=== PATIENT | female | born 1965 | race Caucasian/White ===

== ENCOUNTER 2017-02-28 17:27 | Emergency (ER) | payer OTHER ==
[2017-02-28] MEDS ORDERED: DIPHENHYDRAMINE 50 MG/ML VIAL ONE (17:50)
[2017-02-28] MEDS ORDERED: FAMOTIDINE IN SALINE, ISO-OSM 50 ML IV ONE (17:50)
[2017-02-28] MEDS ORDERED: METHYLPREDNISOLONE SOD 125 MG/2 ML VIAL ONE (17:50)
--- NOTE | 2017-02-28 18:49 | ER PHYSICIAN DOCUMENTATION ---
Physician Documentation [facility] Name:Lauryn Kamara Age:51 yrs Sex:Female :1965 Arrival Date:02/28/2017 Time:17:27 Bed4 Private MD: Olman Landis Disposition: 02/28/17 18:16 Discharged to Home/Self Care. Impression: Acute Allergic Reaction, Rash. - Condition is Good. - Discharge Instructions: ALLERGIC REACTION, Other (General). - Prescriptions for Medrol (Win) 4 mg Oral - take 1 packet by ORAL route as directed - follow package instructions; 1 packet. - Medical Reconciliation form form. - Follow up: Private Physician; When: 2 - 3 days; Reason: Continuance of care. Follow up: Austin Toney MD; When: As needed; Reason: Continuance of care. - Problem is new. - Symptoms have improved. HPI: 02/28 18:07 This 51 yrs old Female presents to ER with complaints of jm Nausea/Vomiting/Diarrhea, Itching - HANDS AND FEET. 18:07 The patient presents with itching, redness of skin, nausea and diarrhea . Onset: The jm symptom(s)/episode began/occurred this morning, today. Associated signs and symptoms: Pertinent negatives: abdominal pain, dysphagia, Light headed shortness of breath, swelling, Syncope. Possible causes: The patient has no known obvious cause for the symptoms. At home the patient or guardian has treated the symptoms with Benadryl. Pt denies new soaps, detergents, animals, meds, or anything she can think of that would cause this diffuse itching and rash. . Historical: - Allergies: No known drug Allergies; pollen, trees, and grasses as a child; - Home Meds: 1. Flonase 50 mcg/actuation nasal spsn 2. levothyroxine oral - PMHx: HYPOTHYROIDISM; HYPOTHYROIDISM; - PSHx: left shoulder surgery; Hysterectomy; - Tetanus: unknown. - Ebola Screening: : Patient negative for fever greater than or equal to 101.5 degrees Fahrenheit, and additional compatible Ebola Virus Disease symptoms. Patient denies exposure to infectious person. Patient denies travel to an Ebola-affected area in the 21 days before illness onset. No symptoms or risks identified at this time. . - Immunization history: Unable to Obtain. - Social history: Smoking status: Patient states was never smoker of tobacco. Patient/guardian denies using alcohol. ROS: 18:10 Constitutional: Negative for fever. jm 18:10 ENT: Negative for difficulty swallowing, difficulty handling secretions. 18:10 Cardiovascular: Negative for chest pain, palpitations. 18:10 Respiratory: Negative for cough, shortness of breath. 18:10 Abdomen/GI: Positive for nausea, diarrhea, Negative for vomiting. 18:10 Skin: Positive for rash. Exam: 18:11 Constitutional: The patient appears alert, awake, anxious. jm 18:11 ENT: Posterior pharynx: Airway: normal, Uvula: normal, swelling, is not appreciated, erythema, is not appreciated, Voice: is normal. 18:11 Neck: External neck: is normal, Thyroid: appears normal, Trachea: is midline with no obvious abnormalities. 18:11 Cardiovascular: Rate: normal, Rhythm: regular. 18:11 Respiratory: Respirations: normal, Breath sounds: are normal, wheezing, is not appreciated, stridor, is not appreciated. 18:11 Skin: Appearance: Temperature: normal temperature, urticaria, and is diffusely located. Vital Signs: 17:37 Pulse 102 MON; Resp 31; Pulse Ox 95% ; rs 17:42 Pulse 87 MON; Resp 16; Pulse Ox 95% ; rs 17:42 BP 127 / 71 (auto/); rs 17:47 Pulse 80 MON; Resp 19; Pulse Ox 96% ; rs 17:52 Pulse 95 MON; Resp 17; Pulse Ox 95% ; rs 17:54 BP 137 / 80 (auto/); rs 17:57 Pulse 82 MON; Resp 17; Pulse Ox 98% ; rs 18:00 BP 125 / 79 (auto/); rs 18:17 Pulse 79 MON; Resp 17; Pulse Ox 97% ; rs 18:20 BP 132 / 79 (auto/); rs 18:30 BP 126 / 80 (auto/); rs 18:32 Pulse 67 MON; Resp 18; Pulse Ox 97% ; rs MDM: 17:34 Patient medically screened. jm 18:12 Differential diagnosis: urticaria. Data reviewed: vital signs, nurses notes, and as a jm result, I will discharge patient. Counseling: I had a detailed discussion with the patient and/or guardian regarding: the historical points, exam findings, and any diagnostic results supporting the discharge/admit diagnosis, the need for outpatient follow up, with the patient's primary care provider, an allergy/document design specialist. Medication response: The patient's symptoms have improved. Response to treatment: the patient's symptoms have markedly improved after treatment. ED course: pt is HD stable, but rash is intense. Pt given benadryl, pepcid, and solumedrol. After an hour ob observation, pt continues to improve. I will send home w medrol dose pack. . 04 17:38 Order name: Pulse Ox Continuous; Complete Time: 18:43 samanta 02/28 17:39 Order name: Iv Saline Lock; Complete Time: 18:43 Dispensed Medications: Completed: NS 0.9% 1000 ml IV at bolus once Completed: Pepcid 20 mg IVPB once 17:40 Drug: Benadryl 50 mg; {Note: decreased dosed to 25 mg just prior to being given. .} rs Route: IVP; Rate: 12.5 mg/min; Infused Over: 2 mins; Site: right antecubital; 18:43 Follow up: Response: Marked relief of symptoms rs 17:40 Drug: NS 0.9% 1000 ml; Volume: 1000 ml; Route: IV; Rate: bolus; Infused Over: 40 mins; rs Site: left antecubital; Delivery: [place] [facility]; 18:35 Follow up: Response: No adverse reaction; Marked relief of symptoms; IV Status: rs Completed infusion; IV Intake: 1000ml 17:43 Drug: Solu-MEDROL 125 mg; Route: IVP; Rate: 62.5 mg/min; Infused Over: 2 mins; Site: rs left antecubital; 18:45 Follow up: Response: No adverse reaction; Marked relief of symptoms rs 17:45 Drug: Pepcid 20 mg; Volume: 20 ml; Route: IVPB; Rate: 10 mg/min; Infused Over: 2 mins; rs Site: left antecubital; Delivery: [place] [facility]; 17:50 Follow up: IV Status: Completed infusion; IV Intake: 20ml rs 18:45 Follow up: Response: No adverse reaction; Marked relief of symptoms rs Signatures: Kriss Posada RN RN rs Olman Lucia MD MD
--- NOTE | 2017-02-28 18:49 | ER NURSING DOCUMENTATION ---
Nurse's Notes [facility] Name:Lauryn Kamara Age:51 yrs Sex:Female :1965 Arrival Date:02/28/2017 Time:17:27 Bed4 Private MD: Diagnosis:Acute Allergic Reaction;Rash Presentation: 02/28 17:45 Acuity: BLANCA 2 st 17:54 Presenting complaint: Patient states: Allergic reaction started approx 30 min [employer]. Took rs one Benadryl when she felt it starting. Initially she denied a hx of allergies but then remembered that she has had something like this happen at [facility], she takes a Benadryl, and goes back to sleep. She also was tx with allergy shots as a child for molds, trees, grasses. She was living in [place] at the time. Denies feeling SOB, no CP, itching all over, "lips feel a little big", has had one episode of N/V. Transition of care: patient was not received from another setting of care. 17:54 Method Of Arrival: Private Vehicle rs Triage Assessment: 17:30 General: Appears uncomfortable, well developed, well nourished, well groomed, Behavior rs is agitated, cooperative, pleasant, restless, scratching herself all over. Hives were forming, and she was turning generally red. States she feels jittery. . Pain: Denies pain. EENT: No deficits noted. Neuro: No deficits noted. Level of Consciousness is awake, alert, Oriented to person, place, time, event, Gait is steady, Speech is normal, Facial symmetry appears normal. Cardiovascular: No deficits noted. Capillary refill < 3 seconds Heart tones S1 S2 present Pulses are 3+ in left radial artery Denies lightheadedness, palpitations, syncope, Chest pain. Respiratory: No deficits noted. Airway is patent Respiratory effort is even, unlabored, Respiratory pattern is regular, symmetrical, hyperventilation Breath sounds are clear bilaterally. Denies shortness of breath. GI: Abdomen is flat, non- distended Bowel sounds present X 4 quads. Abd is soft and non tender Reports N?V [employer]. Derm: Skin is red, Rash noted that is urticaria, Reports increased itching. Historical: - Allergies: No known drug Allergies; pollen, trees, and grasses as a child; - Home Meds: 1. Flonase 50 mcg/actuation nasal spsn 2. levothyroxine oral - PMHx: HYPOTHYROIDISM; HYPOTHYROIDISM; - PSHx: left shoulder surgery; Hysterectomy; - Tetanus: unknown. - Ebola Screening: : Patient negative for fever greater than or equal to 101.5 degrees Fahrenheit, and additional compatible Ebola Virus Disease symptoms. Patient denies exposure to infectious person. Patient denies travel to an Ebola-affected area in the 21 days before illness onset. No symptoms or risks identified at this time. . - Immunization history: Unable to Obtain. - Social history: Smoking status: Patient states was never smoker of tobacco. Patient/guardian denies using alcohol. Screenin:27 Infectious Disease Risk None. Abuse screen: Denies threats or abuse. Nutritional rs screening: No deficits noted. Assessment: 18:25 Reassessment: Patient states feeling better. Patient states symptoms have improved. rs Patient appears in no apparent distress at this time. GI: No deficits noted. Derm: No deficits noted. Skin is pink, warm & dry. Vital Signs: 17:37 Pulse 102 MON; Resp 31; Pulse Ox 95% ; rs 17:42 Pulse 87 MON; Resp 16; Pulse Ox 95% ; rs 17:42 BP 127 / 71 (auto/); rs 17:47 Pulse 80 MON; Resp 19; Pulse Ox 96% ; rs 17:52 Pulse 95 MON; Resp 17; Pulse Ox 95% ; rs 17:54 BP 137 / 80 (auto/); rs 17:57 Pulse 82 MON; Resp 17; Pulse Ox 98% ; rs 18:00 BP 125 / 79 (auto/); rs 18:17 Pulse 79 MON; Resp 17; Pulse Ox 97% ; rs 18:20 BP 132 / 79 (auto/); rs 18:30 BP 126 / 80 (auto/); rs 18:32 Pulse 67 MON; Resp 18; Pulse Ox 97% ; rs ED Course: 17:28 Patient arrived in ED. ama 17:30 Cardiac Monitoring On for Nurse Monitoring only. Pulse Ox - RN Monitoring Only NIBP On rs - RN Monitoring Only. Door closed. Noise minimized. Lights dimmed. Verbal reassurance given. Diet: Patient is NPO. 17:33 Notified ED Physician of patient's arrival and chief complaint. Dr. Lucia notified. Bed rs in low position Call Light in Reach HOB Elevated Side rails up x1. Family accompanied patient. 17:34 Olman Lucia MD is Attending Physician. jm 17:[address] 17:54 Kriss Posada, JAXON is Primary Nurse. rs 18:16 Austin Toney MD is Referral Physician. jm 18:29 Resting quietly. discharge. rs 18:29 Inserted peripheral IV: 20 gauge in left antecubital area. rs 18:39 Discontinued IV intact, bleeding controlled, pressure dressing applied, No rs redness/swelling at site. Administered Medications: Completed: NS 0.9% 1000 ml IV at bolus once Completed: Pepcid 20 mg IVPB once 17:40 Drug: Benadryl 50 mg; {Note: MD decreased dosed to 25 mg just prior to being given. .} rs Route: IVP; Rate: 12.5 mg/min; Infused Over: 2 mins; Site: right antecubital; 18:43 Follow up: Response: Marked relief of symptoms rs 17:40 Drug: NS 0.9% 1000 ml; Volume: 1000 ml; Route: IV; Rate: bolus; Infused Over: 40 mins; rs Site: left antecubital; Delivery: [place] [facility]; 18:35 Follow up: Response: No adverse reaction; Marked relief of symptoms; IV Status: rs Completed infusion; IV Intake: 1000ml 17:43 Drug: Solu-MEDROL 125 mg; Route: IVP; Rate: 62.5 mg/min; Infused Over: 2 mins; Site: rs left antecubital; 18:45 Follow up: Response: No adverse reaction; Marked relief of symptoms rs 17:45 Drug: Pepcid 20 mg; Volume: 20 ml; Route: IVPB; Rate: 10 mg/min; Infused Over: 2 mins; rs Site: left antecubital; Delivery: [place] [facility]; 17:50 Follow up: IV Status: Completed infusion; IV Intake: 20ml rs 18:45 Follow up: Response: No adverse reaction; Marked relief of symptoms rs Intake: 17:50 IV: 20ml; Total: 20ml. rs 18:35 IV: 1000ml; Total: 1020ml. rs Outcome: 18:16 Discharge ordered by . samanta 18:30 IV D/Booker rs 18:47 Discharged to home ambulatory. rs 18:47 Condition: improved 18:47 Discharge instructions given to patient, family, Instructed on discharge instructions, medication usage, Demonstrated understanding of instructions, medications, Prescriptions given X 1. 18:48 Patient left the ED. rs 03/01 10:23 Discharge F/U Call: Spoke with: patient. other: Name: pt states that she is doing st much better now. pt plans to take Zyrtec till she is able to fallow up with an net programmer to figure out what she is allergic to. Signatures: Leanna North RN RN st Stalker, Rachael, RN RN rs Meyer, John, MD MD jm Averdick, Andrew, Reg Reg ama
== END 2017-02-28 18:48 | disposition home or self-care (01) ==
LOC: ER 17:27
DX: L50.0 Allergic urticaria (principal); R11.0 Nausea; R19.7 Diarrhea, unspecified; Z79.899 Other long term (current) drug therapy
CPT/HCPCS: 96361; 96374; 96375; 99283; J1200; J2930